=== PATIENT | female | born 1965 ===

== ENCOUNTER 2021-10-20 08:00 | Outpatient (CLI) | payer OTHER | END 2021-10-20 08:13 | disposition home or self-care (01) | LOC: LAB 08:00 | PROVIDERS: ATTEND Orthopaedic Surgery | DX: D64.9 Anemia, unspecified (principal); E88.9 Metabolic disorder, unspecified; D68.8 Other specified coagulation defects; N39.0 Urinary tract infection, site not specified; Z76.89 Persons encountering health services in other specified circumstances ==

== ENCOUNTER 2021-10-21 06:36 | Outpatient (CLI) | payer OTHER ==
[2021-10-23] MEDS ORDERED: LEVOTHYROXINE25 MCG PO (13:41)
== END 2021-10-21 06:49 | disposition home or self-care (01) ==
LOC: EKG 06:36
PROVIDERS: ATTEND Orthopaedic Surgery
DX: I49.9 Cardiac arrhythmia, unspecified (principal); I10 Essential (primary) hypertension

== ENCOUNTER 2021-10-23 14:04 | Outpatient (CLI) | payer OTHER ==
[~2021-10-23 14:04] MED LIST: LEVOTHYROXINE25 MCG PO
== END 2021-10-23 14:11 | disposition home or self-care (01) ==
LOC: RAD 14:04
PROVIDERS: ATTEND Orthopaedic Surgery
DX: M75.121 Complete rotator cuff tear or rupture of right shoulder, not specified as traumatic (principal)